=== PATIENT | male | born 1950 | race Hispanic/Latino ===

== ENCOUNTER 2019-05-23 06:25 | Day surgery (SDC) | payer MEDICARE ==
[2019-05-21 12:59] LABS: BASOPHILS % (AUTO) 1.7 % (0.0-5.0); EOSINOPHILS % (AUTO) 2.9 % (0.0-8.0); HEMATOCRIT 45.7 % (42-54); LYMPHOCYTES % (AUTO) 43.4 % (21.0-51.0); MEAN CORPUSCULAR HEMOGLOBIN 25.1 pg (27.0-33.0); MEAN CORPUSCULAR HGB CONC 32.2 g/dL (32.0-36.0); MEAN CORPUSCULAR VOLUME 78.1 fL (79-99); MONOCYTES % (AUTO) 4.5 % (3.0-13.0); NEUTROPHILS % (AUTO) 47.3 % (40.0-77.0); PLATELET COUNT (AUTO) 216 K/uL (130-400); RED BLOOD CELL COUNT(AUTO) 5.85 MIL/uL (4.50-6.20); RED CELL DISTRIBUTION WIDTH 15.5 % (11.0-15.5); WHITE BLOOD COUNT (AUTO) 4.2 K/uL (4.8-10.8)
[2019-05-21 13:08] LABS: CREATININE 1.4 mg/dL (0.5-1.5); POTASSIUM 3.5 mmol/L (3.5-5.1)
[2019-05-21 13:17] LABS: INR 1.12 (0.85-1.15); PARTIAL THROMBOPLASTIN TIME 27.9 SEC (26.3-35.5); PROTHROMBIN TIME 11.7 SEC (9.6-11.6)
[2019-05-21 13:19] VITALS: BP 141/54
[2019-05-23] VITALS (9 sets, daily range): BP systolic 103–147; BP diastolic 49–68
[~2019-05-23] VITALS: Ht 176.5 cm; Wt 105.4 kg
[~2019-05-23 06:25] MED LIST: AMLO10TA7 PO; HYDR25TA PO; HYDRALAZINE PO; ROSU10TA22 PO; SODIUM CHLORIDE 0.9% 500ML 500 ML IV SCH; TADA5TAB PO; VALS320T16 PO
--- NOTE | 2019-05-23 07:30 | NUR ---
PRE OP PT ARRIVED AMBULATORY IN NO DISTRESS FOR SVT ABLATION. PT MADE COMFORTABLE IN ROOM, CALL LIGHT WITH IN REACH, BED AT LOWEST POSITION. PT INSTRUCTED TO CALL FOR ASSISTANCE AND VOICED UNDERSTANDING
[2019-05-23] MEDS ORDERED: SODIUM CHLORIDE 0.9% 1000ML 1,000 ML IV ONE (08:00)
[2019-05-23] MEDS ORDERED: HEPARIN SODIUM 1000UNIT/ML 10ML VIAL ONE (12:00)
[2019-05-23] MEDS ORDERED: MEPERIDINE-PF 25 MG/ML SYG ONE ×4 (12:00→15:01)
[2019-05-23] MEDS ORDERED: MIDAZOLAM HCL 1 MG/ML 2ML VIAL ONE ×2 (12:00→13:04)
[2019-05-23] MEDS ORDERED: LIDOCAINE HCL 2% 20ML ONE (12:00)
--- NOTE | 2019-05-23 12:12 | NUR ---
EMBROIDERY PATTERNMAKER PT TO EMBROIDERY PATTERNMAKER VIA W/C IN NO DISTRESS. TRANSPORTED BY ELVIS ZAMBRANO RN.
[2019-05-23] MEDS ORDERED: ISOPROTERENOL HCL 0.2 MG/ML AMP/VIAL/BAG ONE (13:32)
[2019-05-23] MEDS ORDERED: METO-391 PO (15:36)
[2019-05-23] MEDS ORDERED: ACETAMINOPHEN-CODEINE 300/30MG TAB PO PRN (15:45)
--- NOTE | 2019-05-23 16:20 | NUR ---
EKG POST ABLATION EKG RESULT REPORTED TO DR. HEBERT, NO FURTHER ORDERS GIVEN.
--- NOTE | 2019-05-23 19:05 | NUR ---
DISCHARGE PT DISCHARGED VIA WHEELCHAIR VIA TAXI, STATES HE WILL STAY IN A HOTEL AND HAS DR. HEBERT'S PERSONAL PHONE NUMBER IN CASE NEEDED. DISCHARGE INSTRUCTIONS GIVEN TO PT, PT FULLY AWAKE AND ALERT, VERBALIZED UNDERSTANDING. CATH SITE TO BOTH GROIN REMANS SOFT, DRESSINGS DRY AND INTACT, NO [id number], NO HEMATOMA NOTED
== END 2019-05-23 19:05 | disposition home or self-care (01) ==
LOC: DAH 06:25
PROVIDERS: ATTEND Internal Medicine Cardiovascular Disease
DX: I47.1 Supraventricular tachycardia (principal); I12.9 Hypertensive chronic kidney disease with stage 1 through stage 4 chronic kidney disease, or unspecified chronic kidney disease; N18.3 Chronic kidney disease, stage 3 (moderate); G47.33 Obstructive sleep apnea (adult) (pediatric); Z99.89 Dependence on other enabling machines and devices; Z79.01 Long term (current) use of anticoagulants; Z79.899 Other long term (current) drug therapy
CPT/HCPCS: 36415; 80048; 85025; 85610; 85730; 93005 ×2; 93613; 93653; A4215; A4216; A4221; A4222; A4223 ×3; A4606; A4649 ×2; A4663; C1730 ×4; C1732; C1894 ×5; J1644 ×2; J2175 ×4; J2250 ×2; J3490 ×2; J7030; 93621; 93623; 99156; 99157